=== PATIENT | female | born 1940 | race Caucasian/White ===

== ENCOUNTER → 2019-05-07 | Outpatient (CLI) | payer MEDICARE, OTHER ==
[~2019-05-07] MED LIST: CHOL200024 PO; CLON1PAT2 TD; CRANBERRY PO; DESITIN; EPIN0.3A3 SC; ESCI20TA PO; FOLI-17 PO; FURO-93 PO; HYDR25TA11 PO; LEVO125T5 PO; MULT-516 PO; NYSTATIN; OMEP-110 PO; ONDA4TAB13 SL; POTA20TA6 PO; PROM25TA10 PO; TRIA15OI NAS; UREA CREAM TP; VITA1TAB19 PO; VITA80004 PO; [UNRECOGNIZED DRUG - OTHER] PO; [UNRECOGNIZED DRUG - OTHER] PO
== END | disposition home or self-care (01) ==
LOC: STAR 12:29
PROVIDERS: ATTEND Otolaryngology
DX: Z01.818 Encounter for other preprocedural examination (principal); J32.4 Chronic pansinusitis; J34.3 Hypertrophy of nasal turbinates; I51.7 Cardiomegaly; R94.31 Abnormal electrocardiogram [ECG] [EKG]; Z88.8 Allergy status to other drugs, medicaments and biological substances; Z88.1 Allergy status to other antibiotic agents
CPT/HCPCS: 93005

== ENCOUNTER 2019-05-12 05:38 | Day surgery (SDC) | payer MEDICARE, OTHER ==
[2019-05-12] MEDS ORDERED: EPINEPHRINE 1 MG/ML, 1ML ONE (06:43)
[2019-05-12] MEDS ORDERED: OXYMETAZOLINE NASAL SPRAY 0.05%, 15ML ONE (06:43)
[2019-05-12] MEDS ORDERED: LIDOCAINE 1%, 20ML ONE (06:43)
[2019-05-12] MEDS ORDERED: LACTATED RINGERS 1,000 ML IV SCH (06:44)
[2019-05-12] MEDS ORDERED: BACITRACIN OINT 500U/GM, 15 GM ONE (06:47)
[2019-05-12] MEDS ORDERED: MIDAZOLAM 1 MG/ML, 2ML ONE (06:55)
[2019-05-12] MEDS ORDERED: SUCCINYLCHOLINE 20 MG/ML, 10ML ONE (06:56)
[2019-05-12] MEDS ORDERED: ROCURONIUM 10MG/ML,5ML ONE (06:56)
[2019-05-12] MEDS ORDERED: CEFAZOLIN 1,000 MG ONE ×2 (06:56)
[2019-05-12] MEDS ORDERED: FENTANYL PF 100 MCG/2ML ONE ×2 (06:56→09:05)
[2019-05-12] MEDS ORDERED: DEXAMETHASONE 4 MG/ML, 1ML ONE ×2 (06:56)
[2019-05-12] MEDS ORDERED: PROPOFOL 10 MG/ML, 20ML ONE (06:56)
[2019-05-12] MEDS ORDERED: HYDROmorphone 2 MG/ML, 1ML IVPush PRN (07:30)
[2019-05-12] MEDS ORDERED: ONDANSETRON 2MG/ML, 2ML IV PRN (07:30)
[2019-05-12] MEDS ORDERED: METOCLOPRAMIDE 5 MG/ML, 2ML IV PRN (07:30)
[2019-05-12] MEDS ORDERED: MEPERIDINE/PF 25MG/0.5ML IVPush PRN (07:30)
[2019-05-12] MEDS ORDERED: hydrALAzine 20 MG/ML, 1ML IV PRN (07:30)
[2019-05-12] MEDS ORDERED: ACETAMINOPHEN 500 MG TABLET PO ONE (07:30)
[2019-05-12] MEDS ORDERED: LORazepam 2 MG/ML, 1ML IVPush PRN (07:30)
[2019-05-12] MEDS ORDERED: OXYcodone 5 MG/5 ML ORAL.SOL UDC PO PRN (07:30)
[2019-05-12] MEDS ORDERED: FENTANYL PF 100 MCG/2ML IV PRN (07:30)
[2019-05-12] MEDS ORDERED: ONDANSETRON ODT 8 MG PO ONE (07:30)
[2019-05-12] MEDS ORDERED: PHENYLEPHRINE 10 MG/ML ONE (07:35)
[2019-05-12 07:51] LABS: ALANINE AMINOTRANSFERASE 15 U/L (12-78); ALBUMIN 3.4 g/dL (3.4-5.0); ANION GAP 7 mmol/L (5-15); CALCIUM 8.8 mg/dL (8.5-10.1); CHLORIDE 110 mmol/L (98-107); CREATININE 0.74 mg/dL (0.55-1.02)
[2019-05-12 07:53] LABS: ALKALINE PHOSPHATASE 66 U/L (45-117); BILIRUBIN,TOTAL 0.9 mg/dL (0.2-1.0); TOTAL PROTEIN 6.8 g/dL (6.4-8.2)
[2019-05-12] MEDS ORDERED: OXYcodone 5 MG/5 ML ORAL.SOL UDC ONE (09:05)
== END 2019-05-12 12:40 | disposition home or self-care (01) ==
LOC: OR 05:38
PROVIDERS: ATTEND Otolaryngology
DX: J32.4 Chronic pansinusitis (principal); J34.3 Hypertrophy of nasal turbinates; J34.89 Other specified disorders of nose and nasal sinuses; J32.0 Chronic maxillary sinusitis; J34.2 Deviated nasal septum; I10 Essential (primary) hypertension; K74.60 Unspecified cirrhosis of liver; Z88.8 Allergy status to other drugs, medicaments and biological substances
CPT/HCPCS: 30140; 31253; 31267; 36415; 80053; 87070; 87075; 87077; 87102; 87116; 87186; 87205; 87206; 88304; J0171; J0330; J1100; J2250; J2370; J2704; J3010; J7120; Q0162; J0690